=== PATIENT | male | born 1995 | race Caucasian/White ===

== ENCOUNTER 2020-01-18 12:33 | Emergency (ER) | payer OTHER ==
[2020-01-18] MEDS ORDERED: METOCLOPRAMIDE 5 MG/ML 2 ML VIAL IVP STA (13:08)
[2020-01-18] MEDS ORDERED: diphenhydrAMINE 50 MG/ML 1 ML VIAL IVP STA (13:08)
--- NOTE | 2020-01-18 13:11 | ED ---
General Adult HPI - General Chief complaint: Headache Stated complaint: head pain Time Seen by Provider: 01/18/20 13:01 Source: patient, family, RN notes reviewed Mode of arrival: ambulatory Limitations: language barrier - History of Present Illness Initial comments: 24-year-old male with a past medical history of GERD presents to the emergency department for a chief complaint of headache. Patient states he is pain in the back of his head that has been ongoing since yesterday. Patient states that the pain sometimes moves to different places in his head. Patient denies sudden onset or thunderclap sensation. States headache has gradually worsened. States headache is an 8 out of 10 in pain. Patient also has a sore throat and congestion. He does not have fevers or chills.denies cough. Denies recent travel. Patient has no other complaints at this time including shortness of breath, chest pain, abdominal pain, nausea or vomiting, headache, or visual changes. - Related Data Home Medications Medication Instructions Recorded Confirmed Omeprazole [PriLOSEC] 20 mg PO AC-BRKFST 06/24/14 06/24/14 Previous Rx's Medication Instructions Recorded Ibuprofen [Motrin] 600 mg PO Q8HR PRN #30 tab 06/24/14 Allergies Allergy/AdvReac Type Severity Reaction Status Date / Time No Known Allergies Allergy Verified 01/18/20 12:41 Review of Systems ROS Statement: Those systems with pertinent positive or pertinent negative responses have been documented in the HPI. ROS Other: All systems not noted in ROS Statement are negative. Past Medical History Past Medical History: GERD/Reflux History of Any Multi-Drug Resistant Organisms: None Reported Past Surgical History: No Surgical Hx Reported Past Psychological History: No Psychological Hx Reported Smoking Status: Never smoker Past Alcohol Use History: Occasional Past Drug Use History: None Reported General Exam Limitations: language barrier General appearance: alert, in no apparent distress (Well appearing, sitting up on the edge of the event) Head exam: Present: atraumatic, normocephalic, normal inspection Eye exam: Present: normal appearance, PERRL, EOMI. Absent: scleral icterus, conjunctival injection, periorbital swelling ENT exam: Present: normal exam, mucous membranes moist Neck exam: Present: normal inspection, full ROM. Absent: tenderness, meningismus, lymphadenopathy Respiratory exam: Present: normal lung sounds bilaterally. Absent: respiratory distress, wheezes, rales, rhonchi, stridor Cardiovascular Exam: Present: regular rate, normal rhythm, normal heart sounds. Absent: systolic murmur, diastolic murmur, rubs, gallop, clicks GI/Abdominal exam: Present: soft, normal bowel sounds. Absent: distended, tenderness, guarding, rebound, rigid Neurological exam: Present: alert, oriented X3, normal gait Course Vital Signs 01/18/20 12:36 Temperature 98.9 F Pulse Rate 88 Respiratory 20 Rate Blood Pressure 145/80 O2 Sat by Pulse 99 Oximetry Medical Decision Making - Medical Decision Making 24-year-old male presents for headache. This started last night. No maximal intensity at onset. headache came on gradually. It is also associated with sore throat and congestion. No fevers. Vitals are stable. He is well appearing, neurologic exam is negative. Strep is negative. CT brain showed no acute cranial hemorrhage, mass effect, or midline shift. There is apparently a small scalp contusion noted however this is not evident on physical exam and patient denies head injury. Patient was given Benadryl and Reglan and already had significant improvement in pain. Currently rating pain as a 4 out of 10. I will also give patient Toradol before discharge. He will follow up with primary care. I discussed returning if he has any worsening symptoms. Patient is primarily Slovenian-speaking and sister was at bedside translating. I discussed this case with attending Dr. Velázquez who agrees with this assessment and treatment plan. - Lab Data Lab Results 01/18/20 Range/Units 13:12 Group A Strep Rapid Negative (Negative) Disposition Clinical Impression: Headache Disposition: HOME SELF-CARE Condition: Good Instructions (If sedation given, give patient instructions): Acute Headache (ED) Additional Instructions: Please take Motrin and Tylenol for pain. Please follow-up with primary care in 1-2 days. If you have any worsening symptoms return to the emergency department. Is patient prescribed a controlled substance at d/c from ED?: No Referrals: Stephon Ramirez MD [Medical Doctor] - 1-2 days Time of Disposition: 14:12
[2020-01-18] MEDS ORDERED: SODIUM CHLORIDE 0.9% 1,000 ML IV STA (13:37)
--- NOTE | 2020-01-18 13:59 | CT ---
EXAMINATION TYPE: CT brain wo con DATE OF EXAM: 01/18/2020 COMPARISON: NONE HISTORY: Headache CT DLP: 988 mGycm. Automated Exposure Control for Dose Reduction was Utilized. TECHNIQUE: CT scan of the head is performed without contrast. FINDINGS: There is no acute intracranial hemorrhage, mass effect, or midline shift identified. The ventricles and sulci are within normal limits in size. The globes are intact and the visualized sin uses are clear. Scalp contusion measuring 4 mm is seen of the left frontal scalp soft tissues. IMPRESSION: 1. No acute intracranial hemorrhage, mass effect, or midline shift is seen. 2. Small 4 mm left frontal scalp contusion.
[2020-01-18] MEDS ORDERED: KETOROLAC 30 MG/ML 1 ML VIAL IVP STA (14:06)
[2020-01-18 14:48] VITALS: BP 142/78; PULSE 80; RESP 16; TEMP 98.7
== END 2020-01-18 14:46 | disposition home or self-care (01) ==
LOC: EC 12:33
DX: R51 Headache (principal); S00.03XA Contusion of scalp, initial encounter; J02.9 Acute pharyngitis, unspecified; R09.89 Other specified symptoms and signs involving the circulatory and respiratory systems; K21.9 Gastro-esophageal reflux disease without esophagitis; Z79.899 Other long term (current) drug therapy
CPT/HCPCS: 87081; 87430; 70450; 99284; 96374; 96375 ×2; 96361; J1200; J2765; J1885

== ENCOUNTER 2023-01-11 16:16 | Emergency (ER) | payer OTHER ==
[2023-01-11 16:31] VITALS: PULSE 91
[2023-01-11] MEDS ORDERED: KETOROLAC 15 MG/ML 1 ML VIAL IVP STA (17:03)
[2023-01-11] MEDS ORDERED: SODIUM CHLORIDE 0.9% 1,000 ML IV STA (17:10)
[2023-01-11] MEDS ORDERED: FAMOTIDINE 20 MG/2 ML VIAL IV STA (17:10)
[2023-01-11] MEDS ORDERED: ONDANSETRON 4 MG/2 ML VIAL IVP STA (17:10)
[2023-01-11 17:21] VITALS: BP 116/82; TEMP 98.9
[2023-01-11 17:42] VITALS: RESP 18
[2023-01-11 17:50] LABS: Basophils % (A) 1 %; Eosinophils # (A) 0.1 k/uL (0-0.7); Eosinophils % (A) 2 %; HCT 42.7 % (39.0-53.0); HGB 14.8 gm/dL (13.0-17.5); Lymphocytes # (A) 1.9 k/uL (1.0-4.8); Lymphocytes % (A) 33 %; MCH 30.1 pg (25.0-35.0); MCHC 34.6 g/dL (31.0-37.0); Mean Platelet Volume 6.7; Monocytes # (A) 0.3 k/uL (0-1.0); Monocytes % (A) 5 %; Neutrophils # (A) 3.4 k/uL (1.3-7.7); Neutrophils % (A) 58 %; Platelet Count 323 k/uL (150-450); RDW 13.1 % (11.5-15.5); WBC 5.9 k/uL (3.8-10.6)
[2023-01-11 17:53] LABS: Sodium 139 mmol/L (137-145)
[2023-01-11 17:54] LABS: ALT 57 U/L (4-49); AST 34 U/L (17-59); African American GFR (CKD) >90 (>60 ml/min/1.73 sqM); Albumin 4.5 g/dL (3.5-5.0); Alkaline Phosphatase 89 U/L (38-126); Amylase 59 U/L (30-110); Anion Gap 9 mmol/L; Blood Urea Nitrogen 13 mg/dL (9-20); Calcium 9.3 mg/dL (8.4-10.2); Carbon Dioxide 26 mmol/L (22-30); Chloride 104 mmol/L (98-107); Glucose 104 mg/dL (74-99); Lipase 208 U/L (23-300); Non-African American GFR(CKD) >90 (>60 ml/min/1.73 sqM); Potassium 3.9 mmol/L (3.5-5.1); Total Bilirubin 0.4 mg/dL (0.2-1.3); Total Protein 7.5 g/dL (6.3-8.2)
--- NOTE | 2023-01-11 18:12 | ED ---
Abdominal Pain HPI - General Chief Complaint: Chest Pain Stated Complaint: Chest Pain/Back Pain Time Seen by Provider: 01/11/23 17:01 Source: patient, RN notes reviewed Mode of arrival: ambulatory Limitations: language barrier - History of Present Illness Initial Comments: This is a 27-year-old male who presents to the emergency department for chest pain/epigastric pain with radiation into the back. Patient states that this started yesterday. He has had intermittent problems with this over the last several months, however it is now increasing in severity. He has nausea but no vomiting. Denies any changes in bowel/bladder habits. Describes this as a sharp/stabbing sensation. Pain increases when trying to take a deep breath. Unsure if this is correlated with the foods that he eats. Patient is Macedonian- speaking and his [id number] is translating for him. Denies any fevers, chills, sore throat, cough, dyspnea, palpitations, vomiting, diarrhea, back pain, or headaches. MD Complaint: abdominal pain Onset/Timin -: days(s) Location: epigastric Radiation: back Associated Symptoms: nausea - Related Data Home Medications Medication Instructions Recorded Confirmed Calcium Carbonate [Tums] 1,000 mg PO TID PRN 01/11/23 01/11/23 Pantoprazole Sodium [Protonix] 40 mg PO DAILY 01/11/23 01/11/23 Previous Rx's Medication Instructions Recorded Famotidine [Pepcid] 20 mg PO BID 7 Days #14 tablet 01/11/23 Hyoscyamine Sulfate [Levsin] 0.125 mg PO Q4H PRN #20 tab 01/11/23 Ondansetron Odt [Zofran Odt] 4 mg PO Q8HR PRN #10 tab 01/12/23 Allergies Allergy/AdvReac Type Severity Reaction Status Date / Time No Known Allergies Allergy Verified 01/11/23 18:58 Review of Systems ROS Statement: Those systems with pertinent positive or pertinent negative responses have been documented in the HPI. ROS Other: All systems not noted in ROS Statement are negative. Past Medical History Past Medical History: GERD/Reflux History of Any Multi-Drug Resistant Organisms: None Reported Past Surgical History: No Surgical Hx Reported Past Psychological History: No Psychological Hx Reported Smoking Status: Never smoker Past Alcohol Use History: Occasional Past Drug Use History: None Reported General Exam Limitations: language barrier General appearance: alert, in no apparent distress Head exam: Present: atraumatic, normocephalic, normal inspection Respiratory exam: Present: normal lung sounds bilaterally. Absent: respiratory distress, wheezes, rales, rhonchi, stridor Cardiovascular Exam: Present: regular rate, normal rhythm, normal heart sounds. Absent: systolic murmur, diastolic murmur, rubs, gallop, clicks GI/Abdominal exam: Present: soft, tenderness (Epigastric), normal bowel sounds. Absent: distended, guarding, rebound, rigid Neurological exam: Present: alert, oriented X3, CN II-XII intact Psychiatric exam: Present: normal affect, normal mood Skin exam: Present: warm, dry, intact, normal color. Absent: rash Course Vital Signs 01/11/23 01/11/23 01/11/23 16:28 17:19 17:40 Temperature 98.7 F 98.9 F Pulse Rate 91 91 Respiratory 20 18 Rate Blood Pressure 135/79 116/82 O2 Sat by Pulse 100 100 Oximetry Medical Decision Making - Medical Decision Making This is a 27-year-old male who presents to the emergency department for abdominal pain. Was pt. sent in by a medical professional or institution? @ -No Did you speak to anyone other than the patient for history? @ -His [id number], who is translating for the patient because he is Macedonian- speaking. Did you review nursing and triage notes? @ -Yes, and I agree, it is accurate with regards to the patient's symptoms. Were old charts reviewed? @ -No Differential Diagnosis? @ -Differential Abdominal Pain Men: Appendicitis, cholecystitis, diverticulosis, ischemic bowel, pancreatitis, hepatitis, UTI, gastroenteritis, AAA, incarcerated hernia, bowel obstruction, constipation, inflammatory bowel, hepatitis, peptic ulcer disease, splenic infarction, perforated viscus, testicular torsion, this is not meant to be an all-inclusive list -Differential Chest Pain: Stable Angina, Unstable Angina, STEMI, NSTEMI Aortic Dissection, Pneumothorax, Musculoskeletal, Esophageal Spasm GERD, Cholecystitis, Pancreatitis, Zoster, this is not meant to be an all-inclusive list. EKG interpreted by me (3pts min.)? @ -Sinus rhythm. Ventricular rate 77 bpm, IA interval 164 ms, QRS duration 109 ms, QTC 403 ms. X-rays interpreted by me (1pt min.)? @ -Chest x-ray obtained, my interpretation identifies no localized consolidations or infiltrates. U/S interpreted by me (1pt. min.)? @ -Gallbladder ultrasound obtained. My interpretation identifies no evidence of cholelithiasis or gallbladder wall thickening. What testing was considered but not performed? (CT, X-rays, U/S, labs)? Why? @ None What meds were considered but not given? Why? @ -None Did you discuss the management of the patient with other professionals? @ -No Did you reconcile home meds? @ -No Was smoking cessation discussed for >3mins.? @ -No Was critical care preformed (if so, how long)? @ -No Were there social determinants of health that impacted care today? How? (Homelessness, low income, unemployed, alcoholism, drug addiction, tra nsportation, low edu. Level, literacy, decrease access to med. care, penitentiary, rehab)? @ -No Was there de-escalation of care discussed even if they declined? (Discuss DNR or withdrawal of care, Hospice)? @ -No What co-morbidities impacted this encounter? (DM, HTN, Smoking, COPD, CAD, Cancer, CVA, Hep., AIDS, mental health diagnosis, sleep apnea, morbid obesity)? @ -GERD, morbid obesity Was patient admitted / discharged? @ -Discharged. Lab work obtained and found to be nonactionable. Chest x-ray reveals no acute findings. Gallbladder ultrasound obtained as well, also revealing no acute process. He was given IV fluids, Toradol, Pepcid, and Zofran, which did offer some improvement, however he did still have residual epigastric discomfort. GI cocktail was subsequently administered, which he states essentially resolved his symptoms. Given the location and description of his symptoms, as well as improvement with the GI cocktail, symptoms most likely related to a gastritis. He may also be developing gastric ulcers. Findings reviewed with the patient. Prescriptions for Pepcid, Zofran, and Levsin provided with dosing instructions reviewed. He is reminded to take his Protonix 30 minutes before eating or taking any other medications. Advised he avoid any spicy or acidic foods for the meantime. He is otherwise instructed to follow-up with his primary care provider for reevaluation of symptoms. Undiagnosed new problem with uncertain prognosis? @ -None Drug Therapy requiring intensive monitoring for toxicity (Heparin, Nitro, Insulin, Cardizem)? @ -None Were any procedures done? @ -None Diagnosis/symptom? @ -Gastritis Acute, or Chronic, or Acute on Chronic? @ -Acute Uncomplicated (without systemic symptoms) or Complicated (systemic symptoms)? @ -Uncomplicated Side effects of treatment? @ -None Exacerbation, Progression, or Severe Exacerbation] @ -Not applicable Poses a threat to life or bodily function? @ -No Return precautions reviewed in depth, the patient is instructed to return to the emergency department with any new, worsening, or concerning symptoms. Patient verbalized understanding. This case was discussed in detail with the attending ED physician, Dr. Velázquez. Presentation, findings, and treatment plan discussed in detail as well. - Lab Data Result diagrams: 01/11/23 17:21 01/11/23 17:21 Lab Results 01/11/23 01/11/23 01/11/23 Range/Units 17:21 17:21 17:21 WBC 5.9 (3.8-10.6) k/uL RBC 4.90 (4.30-5.90) m/uL Hgb 14.8 (13.0-17.5) gm/dL Hct 42.7 (39.0-53.0) % MCV 87.0 (80.0-100.0) fL MCH 30.1 (25.0-35.0) pg MCHC 34.6 (31.0-37.0) g/dL RDW 13.1 (11.5-15.5) % Plt Count 323 (150-450) k/uL MPV 6.7 Neutrophils % 58 % Lymphocytes % 33 % Monocytes % 5 % Eosinophils % 2 % Basophils % 1 % Neutrophils # 3.4 (1.3-7.7) k/uL Lymphocytes # 1.9 (1.0-4.8) k/uL Monocytes # 0.3 (0-1.0) k/uL Eosinophils # 0.1 (0-0.7) k/uL Basophils # 0.0 (0-0.2) k/uL Sodium 139 (137-145) mmol/L Potassium 3.9 (3.5-5.1) mmol/L Chloride 104 (98-107) mmol/L Carbon Dioxide 26 (22-30) mmol/L Anion Gap 9 mmol/L BUN 13 (9-20) mg/dL Creatinine 0.82 (0.66-1.25) mg/dL Est GFR (CKD-EPI)AfAm >90 (>60 ml/min/1.73 sqM) Est GFR (CKD-EPI)NonAf >90 (>60 ml/min/1.73 sqM) Glucose 104 H (74-99) mg/dL Plasma Lactic Acid Oumar (0.7-2.0) mmol/L Calcium 9.3 (8.4-10.2) mg/dL Total Bilirubin 0.4 (0.2-1.3) mg/dL AST 34 (17-59) U/L ALT 57 H (4-49) U/L Alkaline Phosphatase 89 (38-126) U/L Troponin I (0.000-0.034) ng/mL Total Protein 7.5 (6.3-8.2) g/dL Albumin 4.5 (3.5-5.0) g/dL Amylase 59 (30-110) U/L Lipase 208 (23-300) U/L Urine Color Colorless Urine Appearance Clear (Clear) Urine pH 7.0 (5.0-8.0) Ur Specific Ramsay 1.010 (1.001-1.035) Urine Protein Negative (Negative) Urine Glucose (UA) Negative (Negative) Urine Ketones Negative (Negative) Urine Blood Negative (Negative) Urine Nitrite Negative (Negative) Urine Bilirubin Negative (Negative) Urine Urobilinogen <2.0 (<2.0) mg/dL Ur Leukocyte Esterase Negative (Negative) 01/11/23 01/11/23 Range/Units 17:21 17:21 WBC (3.8-10.6) k/uL RBC (4.30-5.90) m/uL Hgb (13.0-17.5) gm/dL Hct (39.0-53.0) % MCV (80.0-100.0) fL MCH (25.0-35.0) pg MCHC (31.0-37.0) g/dL RDW (11.5-15.5) % Plt Count (150-450) k/uL MPV Neutrophils % % Lymphocytes % % Monocytes % % Eosinophils % % Basophils % % Neutrophils # (1.3-7.7) k/uL Lymphocytes # (1.0-4.8) k/uL Monocytes # (0-1.0) k/uL Eosinophils # (0-0.7) k/uL Basophils # (0-0.2) k/uL Sodium (137-145) mmol/L Potassium (3.5-5.1) mmol/L Chloride (98-107) mmol/L Carbon Dioxide (22-30) mmol/L Anion Gap mmol/L BUN (9-20) mg/dL Creatinine (0.66-1.25) mg/dL Est GFR (CKD-EPI)AfAm (>60 ml/min/1.73 sqM) Est GFR (CKD-EPI)NonAf (>60 ml/min/1.73 sqM) Glucose (74-99) mg/dL Plasma Lactic Acid Oumar 0.8 (0.7-2.0) mmol/L Calcium (8.4-10.2) mg/dL Total Bilirubin (0.2-1.3) mg/dL AST (17-59) U/L ALT (4-49) U/L Alkaline Phosphatase (38-126) U/L Troponin I <0.012 (0.000-0.034) ng/mL Total Protein (6.3-8.2) g/dL Albumin (3.5-5.0) g/dL Amylase (30-110) U/L Lipase (23-300) U/L Urine Color Urine Appearance (Clear) Urine pH (5.0-8.0) Ur Specific Ramsay (1.001-1.035) Urine Protein (Negative) Urine Glucose (UA) (Negative) Urine Ketones (Negative) Urine Blood (Negative) Urine Nitrite (Negative) Urine Bilirubin (Negative) Urine Urobilinogen (<2.0) mg/dL Ur Leukocyte Esterase (Negative) - Radiology Data Radiology results: report reviewed, image reviewed Disposition Clinical Impression: Gastritis Disposition: HOME SELF-CARE Instructions (If sedation given, give patient instructions): Gastritis (ED), Diet for Stomach Ulcers and Gastritis (ED) Additional Instructions: Return to the emergency department with any new, worsening, or concerning symptoms. Continue to take your Protonix. Make sure that you take this 30 minutes before any other medications or food. Begin taking the Pepcid twice daily as prescribed for the next 7 days. The Levsin can be used every 4 hours as needed for abdominal pain. You can also take Tylenol as needed. Avoid any spicy or acidic foods for the meantime. Follow up with your primary care provider in 1-2 days. Regrese al departamento de emergencias con cualquier sntoma nuevo, que empeore o que le preocupe. Contine tomando cross Protonix. Asegrese de lubna esto 30 minutos antes de cualquier otro medicamento o alimento. Comience a lubna Pepcid dos veces al da segn lo prescrito zack los prximos 7 cox. El Levsin se puede usar cada 4 horas segn sea necesario para el dolor abdominal. Tambin puede lubna Tylenol segn sea necesario. Mientras tanto, kike los alimentos picantes o cidos. Tameka un seguimiento con cross proveedor de atencin primaria en 1 o 2 cox. Prescriptions: Hyoscyamine Sulfate [Levsin] 0.125 mg PO Q4H PRN #20 tab PRN Reason: Pain Famotidine [Pepcid] 20 mg PO BID 7 Days #14 tablet Ondansetron Odt [Zofran Odt] 4 mg PO Q8HR PRN #10 tab PRN Reason: Nausea And Vomiting Is patient prescribed a controlled substance at d/c from ED?: No Referrals: Stan Barton MD [Primary Care Provider] - 1-2 days
--- NOTE | 2023-01-11 18:41 | XR ---
EXAMINATION TYPE: XR chest 2V DATE OF EXAM: 01/11/2023 COMPARISON: NONE HISTORY: Back pain TECHNIQUE: 2 views FINDINGS: Heart and mediastinum are normal. Lungs are clear. Diaphragm is normal. Bony thorax is inta ct. IMPRESSION: Normal chest
--- NOTE | 2023-01-11 19:22 | US ---
EXAMINATION TYPE: US gallbladder DATE OF EXAM: 01/11/2023 COMPARISON: NONE CLINICAL HISTORY: Epigastric pain. epigastric pain TECHNIQUE: Multiple sonographic images of the right upper quadrant are obtained. FINDINGS: EXAM MEASUREMENTS: Liver Length: 13.9 cm Gallbladder Wall: 0.17 cm CBD: 0.3 cm Right Kidney: 10.1 x 4.9 x 5.0 cm TUFTER HAND NOTES: Pancreas: Only the head visible, appears wnl. Liver: wnl Gallbladder: wnl Evidence for sonographic Maldonado's sign: No CBD: wnl Right Kidney: wnl IMPRESSION: No gallstones or dilated ducts. No focal liver defect.
[2023-01-11] MEDS ORDERED: MAG HYDROX/AL HYDROX/SIMETH 30 ML, HYOSCYAMINE ELIXIR 10 ML, LIDOCAINE VISCOUS 2% 10 ML PO STA ×3 (19:30)
[2023-01-11 20:37] LABS: Appearance,Urine Clear (Clear); Bilirubin,Urine Negative (Negative); Blood,Urine Negative (Negative); Color,Urine Colorless; Glucose,Urine (UA) Negative (Negative); Ketones,Urine Negative (Negative); Leukocyte Esterase,Urine Negative (Negative); Nitrite,Urine Negative (Negative); Protein,Urine Negative (Negative); Urobilinogen,Urine <2.0 mg/dL (<2.0)
== END 2023-01-11 20:52 | disposition home or self-care (01) ==
LOC: EC 16:16
DX: K29.70 Gastritis, unspecified, without bleeding (principal); K21.9 Gastro-esophageal reflux disease without esophagitis; Z79.899 Other long term (current) drug therapy
CPT/HCPCS: 36415; 80053; 82150; 83605; 83690; 84484; 85025; 81003; 71046; 76705; 99285; 96374; 96375 ×2; 96361; J2405; J1885

== ENCOUNTER 2025-03-05 13:47 | Emergency (ER) | payer OTHER ==
--- NOTE | 2025-03-05 14:08 | ED ---
General Adult HPI <Honorio Perkins - Last Filed: 03/05/25 14:08> - General Source: patient, spanish interpreter/translator, RN notes reviewed Mode of arrival: ambulatory Limitations: no limitations - History of Present Illness Onset/Timin -: hour(s) <Chino Solis - Last Filed: 03/06/25 17:03> - General Stated complaint: Difficulty swallowing Time Seen by Provider: 03/05/25 13:59 - History of Present Illness Initial comments: Quick note: 29-year-old male with 1 day of sore throat. Patient has trouble swallowing with the pain. Denies any fever chills or night sweats. No obvious sick contacts. Symptoms began earlier approximately 2 to 3 hours ago. (Honorio Perkins) This is a 29-year-old male presenting with spanish interpreter/translator for sore throat x 1 day. Patient endorses pain with swallowing and nasal congestion. Denies recent sick contacts or [id number] medication use. Denies fever, chills, ear pain, cough, dysphagia, chest pain, dyspnea, abdominal pain, N/V/D. (Chino Solis) - Related Data Home Medications Medication Instructions Recorded Confirmed Calcium Carbonate [Tums] 1,000 mg PO TID PRN 01/11/23 01/11/23 Pantoprazole Sodium [Protonix] 40 mg PO DAILY 01/11/23 01/11/23 Previous Rx's Medication Instructions Recorded Famotidine [Pepcid] 20 mg PO BID 7 Days #14 tablet 01/11/23 Hyoscyamine Sulfate [Levsin] 0.125 mg PO Q4H PRN #20 tab 01/11/23 Ondansetron Odt [Zofran Odt] 4 mg PO Q8HR PRN #10 tab 01/12/23 predniSONE 50 mg PO DAILY #5 tab 03/05/25 Allergies Allergy/AdvReac Type Severity Reaction Status Date / Time No Known Allergies Allergy Verified 03/05/25 14:09 Review of Systems ROS Other: All systems not noted in ROS Statement are negative. <Honorio Perkins - Last Filed: 03/05/25 14:08> ROS Other: All systems not noted in ROS Statement are negative. <Chino Solis - Last Filed: 03/06/25 17:03> ROS Statement: Those systems with pertinent positive or pertinent negative responses have been documented in the HPI. Past Medical History Past Medical History: GERD/Reflux History of Any Multi-Drug Resistant Organisms: None Reported Past Surgical History: No Surgical Hx Reported Past Psychological History: No Psychological Hx Reported Smoking Status: Never smoker Past Alcohol Use History: Occasional Past Drug Use History: None Reported <Honorio Perkins - Last Filed: 03/05/25 14:08> General Exam <Honorio Perkins - Last Filed: 03/05/25 14:08> General appearance: alert, in no apparent distress Head exam: Present: atraumatic, normocephalic, normal inspection Eye exam: Present: normal appearance, PERRL, EOMI. Absent: scleral icterus, conjunctival injection, periorbital swelling ENT exam: Present: mucous membranes moist, TM's normal bilaterally, other (Tonsils 1+ with erythema and without exudate) Neck exam: Present: normal inspection. Absent: tenderness, meningismus, lymphadenopathy (Negative lymphadenopathy) Respiratory exam: Present: normal lung sounds bilaterally. Absent: respiratory distress, wheezes, rales, rhonchi, stridor, accessory muscle use, decreased breath sounds, prolonged expiratory Cardiovascular Exam: Present: regular rate, normal rhythm, normal heart sounds. Absent: systolic murmur, diastolic murmur, rubs, gallop, clicks GI/Abdominal exam: Present: soft, normal bowel sounds. Absent: distended, tenderness, guarding, rebound, rigid Extremities exam: Present: normal inspection, full ROM, normal capillary refill. Absent: tenderness, pedal edema, joint swelling, calf tenderness Back exam: Present: normal inspection Neurological exam: Present: alert, oriented X3, CN II-XII intact Psychiatric exam: Present: normal affect, normal mood Skin exam: Present: warm, dry, intact, normal color. Absent: rash <Chino Solis - Last Filed: 03/06/25 17:03> - General Exam Comments Initial Comments: General: Well-appearing, nontoxic, no acute distress. Head: Normocephalic, atraumatic Eyes: PERRLA, EOMI ENT: Airway patent Chest: Nonlabored breathing Skin: No visual rash, normal skin tone Neuro: Alert and oriented 3 Musculoskeletal: No gross abnormalities (Honorio Perkins) Course Vital Signs 03/05/25 03/05/25 14:07 16:14 Temperature 98 F 97.8 F Pulse Rate 74 68 Respiratory 16 16 Rate Blood Pressure 120/78 115/75 O2 Sat by Pulse 100 100 Oximetry Medical Decision Making <Chino Solis - Last Filed: 03/06/25 17:03> - Medical Decision Making Was pt. sent in by a medical professional or institution (, PA, SENIOR PROGRAM MANAGER, urgent care, hospital, or retirement...) When possible be specific @ -No Did you speak to anyone other than the patient for history (EMS, parent, family, police, friend...)? What history was obtained from this source @ -[id number]/[id number] Tank Driver accompanying patient assisted greatly during HPI Did you review nursing and triage notes (agree or disagree)? Why? @ -I reviewed and agree with nursing and triage notes Were old charts reviewed (outside hosp., previous admission, EMS record, old EKG, old radiological studies, urgent care reports/EKG's, retirement records)? Report findings @ -No old charts were reviewed Differential Diagnosis (chest pain, altered mental status, abdominal pain women, abdominal pain men, vaginal bleeding, weakness, fever, dyspnea, syncope, headache, dizziness, GI bleed, back pain, seizure, CVA, palpatations, mental health, musculoskeletal)? @ -Differential Fever: Pneumonia, viral URI, endocarditis, myocarditis, pericarditis, otitis, sinusitis, peritonsillar Abscess, retropharyngeal Abscess, epiglottitis, peritonitis, appendicitis, Iqra cystitis, diverticulitis, hepatitis, colitis, UTI, PID, TOA, pyelonephritis, prostatitis, epididymitis, meningitis, encephalitis, pulmonary embolism, CVA, thyroid storm, pancreatitis, adrenal crisis, cavernous sinus thrombosis, this is not meant to be an all-inclusive list. EKG interpreted by me (3pts min.). @ -Not done X-rays interpreted by me (1pt min.). @ -None done CT interpreted by me (1pt min.). @ -None done U/S interpreted by me (1pt. min.). @ -None done What testing was considered but not performed or refused? (CT, X-rays, U/S, labs)? Why? @ -None What meds were considered but not given or refused? Why? @ -None Did you discuss the management of the patient with other professionals (professionals i.e. , PA, SENIOR PROGRAM MANAGER, lab, RT, psych nurse, social services manager, assistant construction superintendent, teacher, chief business development officer, correctional casework specialist)? Give summary @ -No Was smoking cessation discussed for >3mins.? @ -No Was critical care preformed (if so, how long)? @ -No Were there social determinants of health that impacted care today? How? (Homelessness, low income, unemployed, alcoholism, drug addiction, transportation, low edu. Level, literacy, decrease access to med. care, fci, rehab)? @ -No Was there de-escalation of care discussed even if they declined (Discuss DNR or withdrawal of care, Hospice)? DNR status @ -No What co-morbidities impacted this encounter? (DM, HTN, Smoking, COPD, CAD, Cancer, CVA, ARF, Chemo, Hep., AIDS, mental health diagnosis, sleep apnea, morbid obesity)? @ -None Was patient admitted / discharged? Hospital course, mention meds given and route, prescriptions, significant lab abnormalities, going to OR and other pertinent info. @ -Strep and Cepheid test negative. Patient provided p.o. Tylenol and prednisone. Additional prednisone sent to patient's pharmacy. Advised honey, warm fluids, ice chips, warm salt water gargles for sore throat. Alternate Tylenol/Motrin every 4 hours for pain. Follow-up with PCP for any ongoing or worsening symptoms. Discussed patient with Dr. Rubin. Undiagnosed new problem with uncertain prognosis? @ -No Drug Therapy requiring intensive monitoring for toxicity (Heparin, Nitro, Insulin, Cardizem)? @ -No Were any procedures done? @ -No Diagnosis/symptom? @ -Viral pharyngitis Acute, or Chronic, or Acute on Chronic? @ -Acute Uncomplicated (without systemic symptoms) or Complicated (systemic symptoms)? @ -Uncomplicated Side effects of treatment? @ -No Exacerbation, Progression, or Severe Exacerbation? @ -No Poses a threat to life or bodily function? How? (Chest pain, [place], [place], pneumonia, PE, COPD, DKA, ARF, appy, cholecystitis, CVA, Diverticulitis, Homicidal, Suicidal, threat to staff... and all critical care pts) @ -No (Chino Solis) - Lab Data Lab Results 03/05/25 03/05/25 Range/Units 14:53 14:53 Influenza Type A (PCR) Not Detected (Not Detectd) Influenza Type B (PCR) Not Detected (Not Detectd) RSV (PCR) Not Detected (Not Detectd) SARS-CoV-2 (PCR) Not Detected (Not Detectd) Group A Strep (PCR) NOT DETECTED (Not Detectd) Disposition <Honorio Perkins - Last Filed: 03/05/25 14:08> Is patient prescribed a controlled substance at d/c from ED?: No Time of Disposition: 15:54 <Chino Solis - Last Filed: 03/06/25 17:03> Clinical Impression: Acute viral pharyngitis Disposition: HOME SELF-CARE Condition: Good Instructions (If sedation given, give patient instructions): Pharyngitis (ED) Additional Instructions: Honey, warm fluids, ice chips, warm salt water gargles for sore throat. Alternate Tylenol/Motrin every 4 hours for pain. Follow-up with primary care for any ongoing or worsening symptoms. Prescriptions: predniSONE 50 mg PO DAILY #5 tab Referrals: Stan Barton MD [Primary Care Provider] - 1-2 days
[2025-03-05 14:09] VITALS: RESP 16
[2025-03-05] MEDS: ACETAMINOPHEN TAB 500 MG TAB PO STA (14:53)
[2025-03-05] MEDS: predniSONE 50 MG TAB PO STA (14:53)
[2025-03-05 15:45] LABS: Influenza A Not Detected (Not Detectd); Influenza B Not Detected (Not Detectd); RSV Not Detected (Not Detectd)
[2025-03-05 16:15] VITALS: BP 115/75; PULSE 68; TEMP 97.8
== END 2025-03-05 16:15 | disposition home or self-care (01) ==
LOC: EC 13:47
DX: J02.9 Acute pharyngitis, unspecified (principal); B97.89 Other viral agents as the cause of diseases classified elsewhere
CPT/HCPCS: 87651; 87636; 99284; J7512